=== PATIENT | female | born 1980 | race Caucasian/White ===

== ENCOUNTER 2018-11-27 15:08 | Emergency (ER) | payer OTHER ==
[~2018-11-27] VITALS: Ht 167.6 cm; Wt 113.4 kg
--- NOTE | 2018-11-27 16:08 | NUR ---
PT BIBRA TO ER BED 12 C/O NON RADIATING CHEST AND EPIGASTRIC PAIN X TODAY. PT APPEARS ANXIOUS [employer]. STABLE VITALS AWAITING MD FINN.
--- NOTE | 2018-11-27 16:10 | NUR ---
DR NUGENT AT BEDSIDE FOR EVAL.
[2018-11-27] MEDS ORDERED: LORAZEPAM INJ 2 MG/ML VIAL IM ONE (16:30)
[2018-11-27] MEDS ORDERED: LORAZEPAM INJ 2 MG/ML VIAL ONE (17:03)
--- NOTE | 2018-11-27 18:12 | NUR ---
Patient discharged to home in stable condition. Written and verbal after care instructions given. Patient verbalizes understanding of instruction.
[2018-11-27 18:14] VITALS: BP 122/84
== END 2018-11-27 18:15 | disposition home or self-care (01) ==
LOC: ER 15:12
DX: F41.0 Panic disorder [episodic paroxysmal anxiety] (principal); I10 Essential (primary) hypertension; E03.9 Hypothyroidism, unspecified; R00.2 Palpitations
CPT/HCPCS: 93005; 96372; 99284; J2060